=== PATIENT | male | born 1990 | race African-American/Black ===

== ENCOUNTER 2016-05-23 18:59 | Emergency (ER) | payer BC ==
--- NOTE | ~2016-05-23 | ER ---
PATIENT'S NAME: FEROZ LOPEZ [facility] AGE: 26 Y [address] ROOM: [place] [address] LOCATION: [facility] ADMIT DATE: 05/23/2016 ER/Outpatient Report DISCHARGE DATE: 05/23/2016 FAMILY PHYSICIAN: PHYSICIAN, NO ATTENDING PHYSICIAN: Min Francisco Time of Arrival: 1904 hours. Time of Evaluation: 1912 hours. CHIEF COMPLAINT: Left foot injury. HISTORY OF PRESENT ILLNESS: The patient states he was playing volleyball on 05/22/2016 and injured his left foot, not really quite sure exactly what the mechanism of action was. He has tenderness of his left fourth toe and swelling into the dorsal aspect of his foot. ALLERGIES: NO KNOWN ALLERGIES. MEDICATIONS: No current medications. PAST MEDICAL HISTORY: Benign. PAST SURGICAL HISTORY: Hernia repair. SOCIAL HISTORY: Denies use of tobacco. Occasionally drinks alcohol. Smokes marijuana. REVIEW OF SYSTEMS: All negative other than those mentioned in the HPI. PHYSICAL EXAMINATION: VITAL SIGNS: He weighed 160 pounds, blood pressure is 135/77, pulse of 85, respirations 16, temperature of 98.4, and O2 saturation is 99% on room air. GENERAL: He is awake, alert, and oriented x4. SKIN: [place], warm, and dry. RESPIRATIONS: Even and nonlabored. Lung sounds are clear throughout. HEART: Regular rate and rhythm. EXTREMITIES: Left foot does not show any deformities. He does have some bruising of the fourth toe and of the dorsal aspect of the foot. PATIENT'S NAME: FEROZ LOPEZ [facility] AGE: 26 Y [address] ROOM: [place] [address] LOCATION: [facility] ADMIT DATE: 05/23/2016 ER/Outpatient Report DISCHARGE DATE: 05/23/2016 FAMILY PHYSICIAN: PHYSICIAN, NO ATTENDING PHYSICIAN: Min Francisco LABORATORY DATA AND X-RAYS: X-ray was completed, no acute bony abnormality is seen. IMPRESSION: Contusion to the left foot and toes. PLAN: Home. Rest. Ice. Elevate. Tylenol and ibuprofen for discomfort. Encouraged him to wear form-fitting shoe such as a tennis shoe versus a flip- flop. If he continues to have discomfort in the next 2 to 3 days, he should follow up with the primary provider or he is welcome to return to the ER. He verbalized understanding. IAM DOZIER APRN FOR DO [facility] [employer]ANCE/modl /[id number] d: 05/24/16 1809 t: 06/01/16 0522, OUTPATIENT REPORT
== END 2016-05-23 20:07 | disposition disaster alternative care site (69) ==
LOC: GACC 18:59
DX: S90.122A Contusion of left lesser toe(s) without damage to nail, initial encounter (principal); Z98.890 Other specified postprocedural states; F12.10 Cannabis abuse, uncomplicated; X58.XXXA Exposure to other specified factors, initial encounter; Y93.68 Activity, volleyball (beach) (court)

== ENCOUNTER 2016-06-08 09:48 | Emergency (ER) | payer BC ==
--- NOTE | ~2016-06-08 | ER ---
PATIENT'S NAME: FEROZ LOPEZ [facility] AGE: 26 Y [address] ROOM: [place] [address] LOCATION: [facility] ADMIT DATE: 06/08/2016 ER/Outpatient Report DISCHARGE DATE: 06/08/2016 FAMILY PHYSICIAN: PHYSICIAN, NO ATTENDING PHYSICIAN: Roxanna Arita Admission date and time documented on the medical record. I saw the patient at 1005 hours. CHIEF COMPLAINT: Left 4th and 5th toe pain. HISTORY OF PRESENT ILLNESS: This patient is a 26-year-old male who stubbed his left 4th and 5th toes while playing some type of sport. He was seen at that time with no evidence of fractures. This is about 3 weeks ago. Has not any better, hurts when he has any type of movement. He does a lot of walking at his work and it just really is bothering him, so he came in for reevaluation. No other injuries. No other changes. He has not had any swelling, redness, or red streaking. HOME MEDICATIONS: None. ALLERGIES: NONE. SOCIAL HISTORY: Occasionally smokes. Occasionally uses marijuana. Occasionally uses alcohol. SIGNIFICANT PAST MEDICAL HISTORY: Negative. OPERATIONS: None. REVIEW OF SYSTEMS: All systems reviewed by me are negative with the exception of those discussed in the history of present illness. PHYSICAL EXAMINATION: VITAL SIGNS: Temperature 97.2 tympanic, pulse 74, respirations 14, blood pressure 131/69, and O2 saturation on room air is 96%. GENERAL: On examination, the patient has good movement of all his toes on his left foot. Does have some tenderness in the MP joints of the 4th and 5th toes. Again, no swelling, no open wounds, no abrasions, no red streaking. PATIENT'S NAME: FEROZ LOPEZ [facility] AGE: 26 Y [address] ROOM: [place] [address] LOCATION: [facility] ADMIT DATE: 06/08/2016 ER/Outpatient Report DISCHARGE DATE: 06/08/2016 FAMILY PHYSICIAN: PHYSICIAN, NO ATTENDING PHYSICIAN: Roxanna Arita NEUROVASCULAR: Intact. Pulses intact. No deformities that I could see. IMAGING DATA: X-ray of the left foot showed no fracture, dislocation, or any other abnormalities. Plain x-ray was read by Radiology, see dictated transcribed report. IMPRESSION: Left 4th and 5th toes pain secondary to sprain. No evidence of dislocation or fracture on x-ray. PLAN: The patient will be discharged from the Emergency Department. Observation. Activity as tolerated. Aleve 2 orally times a day with food for 10-14 days. If no improvement, he will need to see a testing consultant. Follow up with personal physician as needed. Discussed my findings and recommendations with the patient, he understands. ROXANNA ARITA MD SDS/modl /[id number] d: 06/10/16 0043 t: 06/10/16 0618, OUTPATIENT REPORT
== END 2016-06-08 10:43 | disposition disaster alternative care site (69) ==
LOC: GMED 09:48
DX: S93.505A Unspecified sprain of left lesser toe(s), initial encounter (principal); W22.8XXA Striking against or struck by other objects, initial encounter; Y93.79 Activity, other specified sports and athletics; Y99.8 Other external cause status